=== PATIENT | male | born 1980 | race Caucasian/White ===

== ENCOUNTER → 2018-08-05 | Emergency (ER) | payer SELFPAY ==
[~2018-08-05] VITALS: Ht 177.8 cm; Wt 86.2 kg
[~2018-08-05] MED LIST: ACETAMINOPHEN 500 MG TAB (TYLENOL) PO STA; KETOROLAC 30 MG/ML VIAL IVP STA; METOCLOPRAMIDE INJ 10 MG/2 ML (REGLAN) IVP STA; NS IV 1000 ML 1,000 ML IV STA; diphenhydrAMINE 50 MG/ML INJ (BENADRYL) IVP STA
--- NOTE | 2018-08-05 23:32 | ED Headache ---
General Chief Complaint: Head/Cervical Problems Stated Complaint: MIGRAINE History of Present Illness Date Seen by Provider: Aug 05, 2018 Time Seen by Provider: 23:18 Timing/Duration: 1-3 hours Severity/Quality: moderate Location: frontal Prior Headaches/Recent Trauma: occasional headaches Modifying Factors: improves with exposure to light Associated Symptoms: No numbness in legs/feet, No stiff neck, No vision changes , No weakness This is a 38-year-old male who complains of a "migraine" headache. He has had similar headaches in the past. His headache tonight began about 2 hours ago, not "worst of life", not abrupt in onset, not exertional. No associated visual change or focal weakness, numbness, or tingling. No fever or neck pain or neck stiffness. He says that he has not been to an emergency department for his headache in the past. Endorses phonophobia and photophobia. Allergies and Home Medications Allergies Coded Allergies: No Known Drug Allergies (Unverified , 08/05/18) Patient Home Medication List Home Medication List Reviewed: Yes Review of Systems Review of Systems Constitutional: no symptoms reported Eyes: Photophobia Ears, Nose, Mouth, Throat: no symptoms reported Respiratory: no symptoms reported Cardiovascular: no symptoms reported Gastrointestinal: no symptoms reported Genitourinary: no symptoms reported Musculoskeletal: no symptoms reported Skin: no symptoms reported Psychiatric/Neurological: Headache Past [id number] Hx Patient Social History Recent Foreign Travel: No (N) Contact w/Someone Who Travel: No Physical Exam Vital Signs Vital Signs - First Documented 08/05/18 08/06/18 23:28 02:47 Temp 99.6 Pulse 74 Resp 16 B/P (MAP) 138/88 (105) Pulse Ox 99 Capillary Refill : Height, Weight, BMI Height: '" Weight: lbs. oz. kg; BMI Method: General Appearance: no apparent distress (is covering his eyes) HEENT: PERRL/EOMI, normal ENT inspection, photophobia Neck: supple Cardiovascular: normal peripheral pulses, regular rate, rhythm Respiratory: lungs clear Gastrointestinal: non tender, soft Extremities: non-tender Psychiatric: alert, oriented x 3; No depressed affect Crainal Nerves: normal hearing, normal speech, PERRL; No facial paresthesias, No facial weakness, No tongue deviation to R, No tongue deviation to L Coordination/Gait: normal finger to nose Motor/Sensory: no motor deficit, no sensory deficit Skin: warm/dry Progress/Results/Core Measures Results/Orders Lab Results Laboratory Tests Test 08/05/18 00:09 Range/Units White Blood Count 9.0 4.3-11.0 10^3/uL Red Blood Count 4.92 4.35-5.85 10^6/uL Hemoglobin 15.2 13.3-17.7 G/DL Hematocrit 45 40-54 % Mean Corpuscular Volume 92 80-99 FL Mean Corpuscular Hemoglobin 31 25-34 PG Mean Corpuscular Hemoglobin Concent 34 32-36 G/DL Red Cell Distribution Width 12.9 10.0-14.5 % Platelet Count 369 130-400 10^3/uL Mean Platelet Volume 9.6 7.4-10.4 FL Sodium Level 139 135-145 MMOL/L Potassium Level 3.5 L 3.6-5.0 MMOL/L Chloride Level 98 98-107 MMOL/L Carbon Dioxide Level 23 21-32 MMOL/L Anion Gap 18 H 5-14 MMOL/L Blood Urea Nitrogen 23 H 7-18 MG/DL Creatinine 0.81 0.60-1.30 MG/DL Estimat Glomerular Filtration Rate > 60 BUN/Creatinine Ratio 28 Glucose Level 121 H 70-105 MG/DL Calcium Level 9.3 8.5-10.1 MG/DL My Orders Orders - AYESHA SOTOMAYOR DO Ct Head Wo (08/05/18 23:10) Cbc No Diff (08/05/18 23:26) Basic Metabolic Panel (08/05/18 23:26) Metoclopramide Injection (Reglan Injecti (08/05/18 23:26) Diphenhydramine Injection (Benadryl Inje (08/05/18 23:26) Ns Iv 1000 Ml (Sodium Chloride 0.9%) (08/05/18 23:26) Ketorolac Injection (Toradol Injection) (08/06/18 00:32) Acetaminophen Tablet (Tylenol Tablet) (08/06/18 00:32) Vital Signs/I&O 08/05/18 08/06/18 23:28 02:47 Temp 99.6 99.0 Pulse 74 76 Resp 16 20 B/P (MAP) 138/88 (105) Pulse Ox 99 100 Progress Progress Note #1: Progress Note This is a 38-year-old male complaining of a headache, he states that he has had similar in the past. He denies neurologic symptoms and he is neurologically intact on exam. He does not have systemic symptoms like fever. He has no neck pain or neck stiffness. Suspicion for subarachnoid hemorrhage is low and we can obtain a CT without contrast, onset of headache was within [address] at this point should rule out this entity. We will treat symptomatically and will continue to monitor. Progress Note #2: Progress Note Patient feels much better and would like to go home. Vitals are stable. His significant other is accompanying him home. They will follow-up with primary care physician. Return precautions were reviewed. Departure Impression Primary Impression: Headache Disposition: 01 HOME, SELF-CARE Condition: Improved Departure-Patient Inst. Referrals: NO,LOCAL PHYSICIAN (PCP) Primary Care Physician Patient Instructions: Headache, Adult (DC) AYESHA SOTOMAYOR DO Aug 05, 2018 23:32
[2018-08-06 00:17] LABS: HEMOGLOBIN 15.2 G/DL (13.3-17.7); MEAN PLATELET VOLUME 9.6 FL (7.4-10.4); RED CELL DISTRIBUTION WIDTH 12.9 % (10.0-14.5)
[2018-08-06 00:34] LABS: SODIUM 139 MMOL/L (135-145)
[2018-08-06 00:35] LABS: BUN/CREATININE RATIO 28; CALCIUM 9.3 MG/DL (8.5-10.1); CARBON DIOXIDE 23 MMOL/L (21-32); CHLORIDE 98 MMOL/L (98-107); CREATININE SERUM 0.81 MG/DL (0.60-1.30); GFR ESTIMATED > 60; GLUCOSE 121 MG/DL (70-105); POTASSIUM 3.5 MMOL/L (3.6-5.0)
[2018-08-06 02:47] VITALS: BP 138/88
--- NOTE | 2018-08-06 06:44 | Diagnostic Imaging Report ---
PROCEDURE: CT head without contrast. TECHNIQUE: Multiple contiguous axial images were obtained through the brain without the use of intravenous contrast. INDICATION: Severe migraine headache. Study is limited by motion. CT HEAD: Multiple contiguous axial CT images of the head were obtained. FINDINGS: Ventricles and sulci are within normal limits for size. There is no intracranial hemorrhage identified. There is no abnormal mass effect or shift of midline structures. IMPRESSION: Unremarkable CT of the head. Dictated by: Dictated on workstation # [id number]
== END | disposition home or self-care (01) ==
LOC: ER FS 23:01
DX: R51 Headache (principal); Z86.69 Personal history of other diseases of the nervous system and sense organs
CPT/HCPCS: 36415; 70450; 80048; 85027